=== PATIENT | male | born 1970 | race Caucasian/White ===

== ENCOUNTER 2021-07-24 19:04 | Emergency (ER) | payer OTHER, SELFPAY ==
[2021-07-24 19:08] VITALS: BP 137/78; PULSE 64; RESP 16; TEMP 36.9; O2SAT 97; BMI 26.3
--- NOTE | 2021-07-24 19:19 | W.ED.SKABFB ---
HPI - Skin/Abscess/Foreign Bdy General: Chief complaint: Skin/Abscess/Foreign Body Stated complaint: Fishing hook in Left Hand Time Seen by Provider: 07/24/21 19:19 History of Present Illness: HPI narrative: 51-year-old gentleman comes in today with a fishing were to his left middle finger. Patient was fishing and had caught a fish and was trying to remove the fish from the lower when it got stuck to his left middle finger. Patient has 2 barbs into this finger superficially. Patient does not recall his last tetanus shot. Review of Systems General: Reports: 10 or more systems reviewed and unremarkable except in HPI and below Skin/Breast: Reports: other ([place] in left middle finger.) Physical Exam Const: COMMON NORMALS: no acute distress and patient oriented x3 GENERAL APPEARANCE: cooperative HENMT: COMMON NORMALS: normocephalic and Normal external nose present HEAD & SCALP: normal to inspection and normocephalic NOSE: Normal external nose present Eye: GENERAL EYE: appearance normal, both eyes and all related structures Neck/C-Spine: COMMON NORMALS: full ROM Chest: COMMONS NORMALS: normal inspection of the chest Resp: COMMON NORMALS: normal respiratory effort EFFORT & INSPECTION: Yes able to speak in complete sentences Cardio: COMMON NORMALS: regular rate and regular rhythm RATE: regular rate RHYTHM: regular rhythm GI: COMMON NORMALS: non-tender Extremity: COMMON NORMALS: normal to inspection Neuro: COMMON NORMALS: patient oriented x3 and moves all extremities Psych: COMMON NORMALS: mental status grossly normal and cooperative Skin: NARRATIVE SKIN EXAM: [place] to the left middle finger. Procedures Foreign Body Removal Site: left and hand (Middle finger) Description of foreign body: fish hook Sedation/Analgesia: other (1 cc lidocaine with epinephrine 1%) Technique: incision made to facilitate removal Confirmed by:: direct visualization Complications: none Post-procedure exam: awake, alert Neurovascular: normal capillary fill and distal motor function normal Course Vital Signs: Vital signs: Vital Signs Temperature 98.5 F 07/24/21 19:49 Pulse Rate 64 07/24/21 19:08 Respiratory Rate 16 07/24/21 19:49 Blood Pressure 137/78 07/24/21 19:08 Pulse Oximetry 97 07/24/21 19:49 MDM - Skin/Abscess/Foreign Bdy MDM Narrative: Medical decision making narrative: Patient comes in today with complaints of fishhook to the left middle finger. On exam we note a fishing were to the finger with 2 barbs into the digit. Differential diagnosis includes retained foreign body, need for prophylaxis tetanus, need for prophylaxis antibiotic. [place] was removed after 2 [place] incisions were made to facilitate removal of the barbs. Patient tolerated well. Bleeding was to a minimum. Patient's tetanus was updated. Reviewed post procedure care and instructions. Patient reported understanding and agreed to plan. Patient agreed to monitor site for infection. Discharge Plan Discharge Patient Disposition: Home Clinical Impression: Fish hook injury of finger Qualifiers: Encounter type: initial encounter Laterality: left Qualified Code(s): S69.92XA - Unspecified injury of left wrist, hand and finger(s), initial encounter Condition: Stable Prescriptions: No Action losartan 1 tab PO DAILY RF: 0 omeprazole 20 mg PO DAILY RF: 0 Discharge Orders: Discharge ED (Routine); Ordered 07/24/21 Ordered By: Polo Kuhn Referrals: Graeme Patel [Occupational Therapist] - Discharge Diet: Usual diet Discharge Activity: Increase activity as tolerated Patient Instructions: Opioid Safety, Wound Care (General) Activity Restrictions/Additional Instructions: Keep wound clean and dry as much as possible. Drink plenty of fluids. Tylenol and ibuprofen for pain. Follow-up with primary care. Return to the ER for new concerns. Monitor for signs of infection such as increased redness, swelling, streaking, or fever. Coding Level of Care Code ED Clearing Distribution Clerk for Katina English
[2021-07-24] MEDS: tetanus-dipt-pertussis 0.5 mL SDV IM (19:47)
[2021-07-24 19:49] VITALS: RESP 16; TEMP 36.9; O2SAT 97
== END 2021-07-24 19:51 | disposition home or self-care (01) ==
PROVIDERS: Emergency Provider Nurse Practitioner Family
DX: S69.92XA Unspecified injury of left wrist, hand and finger(s), initial encounter (principal); W26.8XXA Contact with other sharp object(s), not elsewhere classified, initial encounter; Z23 Encounter for immunization
CPT/HCPCS: 10120; 90471; 90715; 99282